=== PATIENT | male | born 2000 | race Caucasian/White ===

== ENCOUNTER 2018-04-21 11:17 | Emergency (ER) | payer BC ==
[~2018-04-21] VITALS: Ht 182.9 cm; Wt 88.6 kg
[2018-04-21 11:22] VITALS: BP 134/62; TEMP 97.9
[2018-04-21 13:43] VITALS: PULSE 59
== END 2018-04-21 13:44 | disposition home or self-care (01) ==
LOC: COL.ER 11:17
DX: S61.216A Laceration without foreign body of right little finger without damage to nail, initial encounter (principal); W25.XXXA Contact with sharp glass, initial encounter; Y92.009 Unspecified place in unspecified non-institutional (private) residence as the place of occurrence of the external cause